=== PATIENT | male | born 1995 | race Caucasian/White ===

== ENCOUNTER 2021-07-09 21:48 | Emergency (ER) | payer SELFPAY ==
[~2021-07-09] VITALS: Ht 175.3 cm; Wt 88.6 kg
[2021-07-09 21:59] VITALS: BP 142/86
[2021-07-09] MEDS ORDERED: AMOX-117 PO (23:41)
== END 2021-07-10 00:01 ==
LOC: ER 21:50
DX: S02.2XXA Fracture of nasal bones, initial encounter for closed fracture (principal); S06.0X0A Concussion without loss of consciousness, initial encounter; S00.81XA Abrasion of other part of head, initial encounter; R51.9 Headache, unspecified; F10.129 Alcohol abuse with intoxication, unspecified; Z72.89 Other problems related to lifestyle; Z79.2 Long term (current) use of antibiotics; Y08.89XA Assault by other specified means, initial encounter; Y93.89 Activity, other specified; Y92.89 Other specified places as the place of occurrence of the external cause; Y99.8 Other external cause status; Y90.9 Presence of alcohol in blood, level not specified
CPT/HCPCS: 70450; 70486; 99285